=== PATIENT | male | born 1945 | race Caucasian/White ===

== ENCOUNTER 2017-02-08 21:15 | Emergency (ER) | payer MEDICARE, BC ==
--- NOTE | 2017-02-20 16:41 | ER ---
ADMIT: 02/08/2017 RM/LOC: ER [facility] MR#: [id number] [address] [id number] [place] [address] [place] [address] Emergency Room Report SEX: M AGE: 71 : 1945 DATE: 02/08/2017 This 71-year-old gentleman, comes in with several hours worth of blurry which he describes as wavy vision in his left eye. He said he has had this happened to him before his blood pressure was elevated, so he took his blood pressure and found it to be in excess of 200. Subsequently came to the Emergency Department. He has no other complaints. No headache. No focal neurologic findings. Just this "wavy vision in the left eye." Said this improved. He did take an extra blood pressure medicine tonight. See T-sheet for history and physical. CT of the head is negative. He was given clonidine. Subsequently reported improvement with his blurry vision. DISCHARGE DIAGNOSIS: Elevated blood pressure. Instructed to follow up with his primary doctor this coming week. Andrew Campbell MD/ mary JOB #: [id number] CC: Emeterio Campuzano MD, Attending Physician Ivan Rose MD, Family Physician
== END 2017-02-08 23:50 | disposition home or self-care (01) ==
LOC: ER 21:15
DX: I10 Essential (primary) hypertension (principal); F17.220 Nicotine dependence, chewing tobacco, uncomplicated; Z98.890 Other specified postprocedural states; Z79.899 Other long term (current) drug therapy